=== PATIENT | female | born 1995 | race Caucasian/White ===

== ENCOUNTER 2019-04-21 01:26 | Emergency (ER) | payer OTHER ==
[~2019-04-21] VITALS: Ht 180.3 cm; Wt 68.0 kg
[2019-04-21] MEDS ORDERED: diphenhdrAMINE HCL 50 MG/1 ML VL ONE (01:36)
[2019-04-21] MEDS ORDERED: methylPREDNISolone SOD SUCC 125 MG/2 ML VL ONE (01:37)
[2019-04-21] MEDS ORDERED: EPINEPHrine HCL 1 MG/1 ML AMP SC ONE (01:45)
[2019-04-21] MEDS ORDERED: SODIUM CHLORIDE 0.9% 1,000 ML IV ONE ×2 (01:45→02:00)
[2019-04-21] MEDS ORDERED: FAMOTIDINE (10MG/ML) 2ML VL IV ONE ×2 (02:00→02:01)
[2019-04-21] MEDS ORDERED: methylPREDNISolone SOD SUCC 125 MG/2 ML VL IV ONE (02:00)
[2019-04-21] MEDS ORDERED: diphenhdrAMINE HCL 50 MG/1 ML VL IV ONE (02:00)
[2019-04-21 04:00] VITALS: BP 105/54
== END 2019-04-21 04:01 | disposition home or self-care (01) ==
LOC: ER 01:30
DX: T78.40XA Allergy, unspecified, initial encounter (principal); T78.3XXA Angioneurotic edema, initial encounter; X58.XXXA Exposure to other specified factors, initial encounter
CPT/HCPCS: 96372; 96374; 96375; 99283; J0171; J1200; J2930; J3490